=== PATIENT | male | born 1935 | race Caucasian/White ===

== ENCOUNTER 2017-02-27 14:49 | Emergency (ER) | payer OTHER, BC ==
[2017-02-27 15:14] VITALS: BP 130/83; PULSE 77; TEMP 98; BMI 28.8
--- NOTE | 2017-02-27 15:51 | PDOC ---
History of Present Illness - General Chief Complaint: Injury Stated Complaint: FALL/ PAIN Time Seen by Provider: 02/27/17 15:23 History Source: Patient Exam Limitations: No Limitations - History of Present Illness Initial Comments: 02/27/17 15:46 Rest night, when he stumbled and tripped over wheelchair landing on his right side. Denies extremity injury but complaints of chest wall pain. States hurts to take a deep breath but has no shortness of breath or cough. Denies head injury although states has a mild swelling to his right upper lip. No dental injury. 02/27/17 15:47 Occurred: reports: yesterday Severity: reports: mild, moderate Pain Location: reports: chest Method of Injury: Yes: fall Modifying Factors: improves with: cold therapy Loss of Consciousness: no loss of consciousness Associated Symptoms (Fall): denies symptoms Past History - Travel Traveled outside of the country in the last 30 days: No Close contact w/someone who was outside of country & ill: No - Past Medical History Allergies/Adverse Reactions: Allergies Allergy/AdvReac Type Severity Reaction Status Date / Time No Known Allergies Allergy Verified 02/27/17 15:09 Home Medications: Ambulatory Orders Metformin HCl 500 mg PO BID #60 tablet 12/22/13 [place]-3 Acid Ethyl Esters [Lovaza -] 4,000 mg PO DAILY 03/22/14 Tamsulosin HCl 0.4 mg PO DAILY 03/22/14 Carvedilol Phosphate [Coreg Cr -] 10 mg PO DAILY #30 capsule 03/24/14 Lisinopril [Prinivil] 10 mg PO DAILY #30 tablet 03/24/14 Aspirin [ASA -] 81 mg PO DAILY 02/27/17 Glipizide/Metformin HCl [Glipizide-Metformin 5-500 mg] 1 each PO ASDIR 02/27/17 Cardiac Disorders: Yes ([place] 1990) Diabetes: Yes HTN: Yes Hypercholesterolemia: Yes - Psycho/Social/Smoking Cessation Hx Anxiety: No Suicidal Ideation: No Smoking History: Never smoked Have you smoked in the past 12 months: No Number of Cigarettes Smoked Daily: 0 If you are a former smoker, when did you quit?: 1990 Information on smoking cessation initiated: No Hx Alcohol Use: No Drug/Substance Use Hx: No Substance Use Type: None Hx Substance Use Treatment: No Review of Systems - Review of Systems Able to Perform ROS?: Yes Is the patient limited Citizen Of [place] proficient: Yes Constitutional: Yes: See HPI. No: Symptoms Reported, Fever, Loss of Appetite, Malaise HEENTM: Yes: See HPI. No: Symptoms Reported Respiratory: Yes: Symptoms reported, See HPI, Other (pain to right anterior chest wall). No: Shortness of Breath ABD/GI: Yes: See HPI. No: Symptoms Reported, Nausea, Vomiting, Abdominal cramping Integumentary: Yes: See HPI. No: Symptoms Reported, Bruising (none noted ) *Physical Exam - Vital Signs Last Vital Signs Temp Pulse Resp BP Pulse Ox 98.0 F 77 18 130/83 100 02/27/17 15:10 02/27/17 15:10 02/27/17 15:10 02/27/17 15:10 02/27/17 15:10 - Physical Exam General Appearance: Yes: Nourished, Appropriately Dressed, Apparent Distress, Mild Distress HEENT: positive: ELIZABETH, Normal ENT Inspection, Normal Voice, TMs Normal, Pharynx Normal Neck: positive: Supple, Other (a C-spine tenderness, no crepitus or step-offs, has full range of motion to neck.). negative: Tender Respiratory/Chest: positive: Lungs Clear, Normal Breath Sounds (I'll do inspiratory pain worse in the anterior aspect on right side. Has no crepitus or step-offs along the rib borders, no bruising or swelling noted.) Cardiovascular: positive: Regular Rhythm Gastrointestinal/Abdominal: positive: Normal Bowel Sounds, Soft Extremity: positive: Normal Capillary Refill, Normal Inspection Integumentary: positive: Normal Color. negative: Swelling, Ecchymosis, Bruising Neurologic: positive: safety advisor II-XII NML intact, Fully Oriented, Alert, Normal Mood/ Affect, Normal Response, Motor Strength 5/5 ED Treatment Course - RADIOLOGY Radiology Studies Ordered: Category Date Time Status RIBS RIGHT SIDE [RAD] Stat Radiology 02/27/17 15:44 Ordered Progress Note - Progress Note Progress Note: Rib contusion, x-ray negative for fracture, we'll treat conservatively with pain resolved and follow-up with PMD as needed *DC/Admit/Observation/Transfer Diagnosis at time of Disposition: Contusion of rib on right side Qualifiers: Encounter type: initial encounter Qualified Code(s): S20.211A - Contusion of right front wall of thorax, initial encounter - Discharge Dispostion Disposition: HOME Condition at time of disposition: Stable Admit: No - Referrals Referrals: Jason Basurto MD [Primary Care Provider] - - Patient Instructions Printed Discharge Instructions: DI for Rib Contusion Additional Instructions: Rest, drink lots of fluids: Teas, water, soups, Pedialyte Ensure good big deep breaths to avoid any consolidation or fluid buildup from lack of activity Use ice packs on the area for pain relief and swelling Continue [id number] medications for symptomatic relief Tylenol or Motrin for fever and pain Followup with private physician in one to 2 days as needed Return to emergency department for worsened symptoms, fevers, dehydration
[2017-02-27] MEDS ORDERED: ACETAMINOPHEN 500 MG TABLET (FP) PO ONE (15:55)
[2017-02-27] MEDS ORDERED: ACETAMINOPHEN 325 MG TABLET (FP) ONE (15:57)
--- NOTE | 2017-03-04 13:58 | EKG ---
Test Reason : Blood Pressure : / mmHG Vent. Rate : 078 BPM Atrial Rate : 078 BPM P-R Int : 000 ms QRS Dur : 204 ms QT Int : 468 ms P-R-T Axes : -11 -70 103 degrees QTc Int : 533 ms Suspect unspecified pacemaker failure SINUS RHYTHM WITH 1ST DEGREE A-V BLOCK PACEMAKER SPIKES ARE NOTED ON THE T WAVES(SEE LEAD V1).CANNOT EXCLUDE PACEMAKER MALFUNCTION RIGHT BUNDLE BRANCH BLOCK LEFT ANTERIOR FASCICULAR BLOCK BIFASCICULAR BLOCK SEPTAL INFARCT (CITED ON OR BEFORE 21-JUN-1998) POSSIBLE LATERAL INFARCT (CITED ON OR BEFORE 21-JUN-1998) ABNORMAL ECG WHEN COMPARED WITH ECG OF 22-MAR-2014 16:15, VENT. RATE HAS INCREASED BY 33 BPM NO CLINICAL INFORMATION IS AVAILABLE, SUGGEST FOLLOW UP TRACING Confirmed by JORGE FREEMAN MD ([id number]) on 03/04/2017 1:58:22 PM Referred By: Confirmed By:JORGE FREEMAN MD
== END 2017-02-27 16:21 | disposition home or self-care (01) ==
LOC: JERFT 14:49
DX: S20.211A Contusion of right front wall of thorax, initial encounter (principal); I10 Essential (primary) hypertension; I25.2 Old myocardial infarction; E11.9 Type 2 diabetes mellitus without complications; E78.00 Pure hypercholesterolemia, unspecified; Z79.82 Long term (current) use of aspirin; Z79.84 Long term (current) use of oral hypoglycemic drugs; W01.0XXA Fall on same level from slipping, tripping and stumbling without subsequent striking against object, initial encounter; Y93.01 Activity, walking, marching and hiking; Y92.9 Unspecified place or not applicable
CPT/HCPCS: 71010-TC; 71101-TC-RT; 93005; 93010; 99281-25

== ENCOUNTER 2018-02-19 12:06 | Emergency (ER) | payer OTHER, BC ==
[2018-02-19 12:21] VITALS: BP 104/67; PULSE 72; TEMP 97.5; BMI 25.8
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
== END 2018-02-19 13:26 | disposition home or self-care (01) ==
LOC: FER 12:06
DX: M25.562 Pain in left knee (principal); I10 Essential (primary) hypertension; E78.5 Hyperlipidemia, unspecified; E11.9 Type 2 diabetes mellitus without complications; I25.10 Atherosclerotic heart disease of native coronary artery without angina pectoris; I25.2 Old myocardial infarction; Z95.810 Presence of automatic (implantable) cardiac defibrillator; Z79.82 Long term (current) use of aspirin; Z79.84 Long term (current) use of oral hypoglycemic drugs; Z87.891 Personal history of nicotine dependence
CPT/HCPCS: 73562-TC-LT-FY; 99281-25

== ENCOUNTER 2018-06-17 21:07 | Emergency (ER) | payer OTHER ==
[2018-06-17 21:22] VITALS: BP 111/78; PULSE 73; TEMP 97.5; BMI 31.9
--- NOTE | 2018-06-17 21:38 | PDOC ---
History of Present Illness - General History Source: Patient Exam Limitations: No Limitations - History of Present Illness Initial Comments: 06/17/18 21:50 The patient is a 83 year old male, with a significant past medical history of CAD (s/p defibrillator, [place] in 1990), HLD, HTN, and DM , who presents to the emergency department with, 3 days of right thumb pain and bruising. As per patient, he is unaware of any recent injury to the thumb prior to the onset of his symptoms. He endorses pain when touching the finger and mild discoloration to the finger, prompting his visit to the ER. He denies any recent fevers, chills, headache or dizziness. He denies any recent nausea, vomit, diarrhea or constipation. He denies any recent chest pain or shortness of breath. He denies any recent dysuria, frequency, urgency or hematuria. Allergies: NKDA Past surgical history: Defibrillator implantation. Social History: Former smoker. Denies EtOH use and recreational drug use. <Cherri Woodward - Last Filed: 06/17/18 21:50> <Bailee Moses - Last Filed: 06/18/18 02:25> - General Chief Complaint: Injury Stated Complaint: R 1ST DIGIT PAIN Time Seen by Provider: 06/17/18 21:09 Past History <Cherri Woodward - Last Filed: 06/17/18 21:50> - Past Medical History Cardiac Disorders: Yes ([place] 1990) COPD: No Diabetes: Yes HTN: Yes Hypercholesterolemia: Yes - Surgical History Cardiac Surgery: Yes (pacemaker/defib) - Suicide/Smoking/Psychosocial Hx Smoking History: Unknown if ever smoked Have you smoked in the past 12 months: No Number of Cigarettes Smoked Daily: 0 If you are a former smoker, when did you quit?: 1990 Information on smoking cessation initiated: No Hx Alcohol Use: No Drug/Substance Use Hx: No Substance Use Type: None Hx Substance Use Treatment: No <Bailee Moses - Last Filed: 06/18/18 02:25> - Past Medical History Allergies/Adverse Reactions: Allergies Allergy/AdvReac Type Severity Reaction Status Date / Time No Known Allergies Allergy Verified 02/19/18 12:11 Home Medications: Ambulatory Orders Metformin HCl 500 mg PO BID #60 tablet 12/22/13 [place]-3 Acid Ethyl Esters [Lovaza -] 4,000 mg PO DAILY 03/22/14 Tamsulosin HCl 0.4 mg PO DAILY 03/22/14 Carvedilol Phosphate [Coreg Cr -] 10 mg PO DAILY #30 capsule 03/24/14 Lisinopril [Prinivil] 10 mg PO DAILY #30 tablet 03/24/14 Aspirin [ASA -] 81 mg PO DAILY 02/27/17 Glipizide/Metformin HCl [Glipizide-Metformin 5-500 mg] 1 each PO ASDIR 02/27/17 Amox-Tr/K Cl [Augmentin - 875Mg Tablet] 1 tab PO BID #14 tablet 06/17/18 Review of Systems - Review of Systems Able to Perform ROS?: Yes Comments:: 06/17/18 21:50 CONSTITUTIONAL: Absent: fever, no chills, no fatigue EYES: Absent: visual changes ENT: Absent: ear pain, no sore throat CARDIOVASCULAR: Absent: chest pain, no palpitations RESPIRATORY: Absent: cough, no SOB GI: Absent: abdominal pain, no nausea, no vomiting, no constipation, no diarrhea GENITOURINARY: Absent: dysuria, no frequency, no hematuria MUSKULOSKELETAL: Absent: back pain, no arthralgia, no myalgia FINGER: Right thumb: Present: Pain and bruising. SKIN: Absent: rash NEURO: Absent: headache All Other Systems: Reviewed and Negative <Cherri Woodward - Last Filed: 06/17/18 21:50> *Physical Exam - Vital Signs Last Vital Signs Temp Pulse Resp BP Pulse Ox 97.5 F L 73 15 111/78 99 06/17/18 21:12 06/17/18 21:12 06/17/18 21:12 06/17/18 21:12 06/17/18 21:12 - Physical Exam Comments: 06/17/18 21:54 GENERAL: The patient is awake, alert, and fully oriented, in no acute distress. HEAD: Normal with no signs of trauma. EYES: Pupils equal, round and reactive to light, extraocular movements intact, sclera anicteric, conjunctiva clear with no pallor. ENT: Ears normal, nares patent, oropharynx clear without exudates. Moist mucous membranes. NECK: Normal range of motion, supple without lymphadenopathy, JVD, or masses. LUNGS: Breath sounds equal, clear to auscultation bilaterally. No wheeze/ crackles. HEART: Regular rate and rhythm, normal S1 and S2 without murmur or rub. ABDOMEN: Soft/nontender/nondistended. BS wnl. No guarding or rebound. No palpable masses. No hepatosplenomegaly. EXTREMITIES:Normal range of motion, no edema. No clubbing or cyanosis. No cords , erythema, or tenderness. RIGHT THUMB: Right thumb: Right distal phalanx of the right thumb is mild erythematous and mildly edematous with faint ecchymosis to the subungual area and periungual region. Minimally fluctuant and moderately tender. Distal phalanx is mildly warm to touch. No discharge noted. No streaking. No open wound evident. NEUROLOGICAL: Cranial nerves II through XII grossly intact. Normal speech, normal gait. PSYCH: Normal mood, normal affect. SKIN: Warm, Dry, normal turgor, no rashes or lesions noted. <Cherri Woodward - Last Filed: 06/17/18 21:50> - Vital Signs Last Vital Signs Temp Pulse Resp BP Pulse Ox 97.5 F L 73 15 111/78 99 06/17/18 21:12 06/17/18 21:12 06/17/18 21:12 06/17/18 21:12 06/17/18 21:12 <Bailee Moses - Last Filed: 06/18/18 02:25> Moderate Sedation - Procedure Monitoring Vital Signs: Procedure Monitoring Vital Signs Temperature 97.5 F L 06/17/18 21:12 Pulse Rate 73 06/17/18 21:12 Respiratory Rate 15 06/17/18 21:12 Blood Pressure 111/78 06/17/18 21:12 O2 Sat by Pulse Oximetry (%) 99 06/17/18 21:12 <Cherri Woodward - Last Filed: 06/17/18 21:50> - Procedure Monitoring Vital Signs: Procedure Monitoring Vital Signs Temperature 97.5 F L 06/17/18 21:12 Pulse Rate 73 06/17/18 21:12 Respiratory Rate 15 06/17/18 21:12 Blood Pressure 111/78 06/17/18 21:12 O2 Sat by Pulse Oximetry (%) 99 06/17/18 21:12 <Bailee Moses - Last Filed: 06/18/18 02:25> Medical Decision Making - Medical Decision Making Documentation has been prepared under my direction and personally reviewed by me in its entirety. I attest that this documented accurately reflects all work, treatment, procedures and medical decision making performed by me. As noted above, this 83-year-old man with a history of DM, presents to ER with few day history of painful, slightly swollen right thumb. Area of tenderness is distal phalanx with faint subungual ecchymosis and mild periungual edema. no drainage noted. Patient does not recall any trauma. Right thumb xray performed : preliminary interpretation- no fracture or dislocation Differential diagnosis cellulitis/early paronychia vs contusion . In light of pt 's DM, will begin empirical treatment with Augmentin 875/125 BID with first dose given here at ER. He should return to ER if symptoms worsen and followup with his PMD within 48 hrs <Bailee Moses - Last Filed: 06/18/18 02:25> *DC/Admit/Observation/Transfer - Attestations Scribe Attestion: 06/17/18 21:55 Documentation prepared by Cherri Woodward, acting as center medical specialist for Bailee Moses MD. <Cherri Woodward - Last Filed: 06/17/18 21:50> <Bailee Moses - Last Filed: 06/18/18 02:25> Diagnosis at time of Disposition: Cellulitis of thumb, right - Discharge Dispostion Disposition: HOME Condition at time of disposition: Stable - Prescriptions Prescriptions: Amox-Tr/K Cl [Augmentin - 875Mg Tablet] 1 tab PO BID #14 tablet - Patient Instructions Printed Discharge Instructions: Cellulitis Additional Instructions: Augmentin 875/125 twice a day for 1 week Elevate right thumb is much as possible over the next few days Soak right thumb in warm water 3 times a day for 15 minutes each time Return to ER immediately if you have any increase in pain/swelling of thumb or if you have pain with movement of the finger/red streaking Follow-up with your doctor within the next 48 hours
[2018-06-17] MEDS ORDERED: AMOX TR/POT CLAV 875MG/125MG TABLETS (FP) PO ONE (22:33)
[2018-06-17] MEDS ORDERED: AMOX TR/POT CLAV 875MG/125MG TABLETS (FP) ONE (22:36)
== END 2018-06-17 22:40 | disposition home or self-care (01) ==
LOC: FER 21:07
DX: L03.011 Cellulitis of right finger (principal); E11.9 Type 2 diabetes mellitus without complications
CPT/HCPCS: 73140-TC-RT-FY; 99282-25

== ENCOUNTER 2018-06-25 13:03 | Emergency (ER) | payer OTHER, BC ==
[2018-06-25 13:08] VITALS: BP 101/66; PULSE 84; TEMP 98.6; BMI 25.0
--- NOTE | 2018-06-25 13:13 | PDOC ---
History of Present Illness <Wicho Nunez S - Last Filed: 06/25/18 14:14> - General History Source: Patient - History of Present Illness Initial Comments: 83 yo M w a hx of CAD (s/p defibrillator, [place] in 1990), HLD, HTN, and DM presents to the ED from his PCP's office - Dr. Steele's office - to have a paronychia on his right thumb drained and have some of the pus cultured and tested for MRSA. Patient was recently seen here in the ED for this thumb pain and was prescribed Abx - Augmentin - which did not appear to resolve the thumb abscess. The pain has worsened and his thumb has swelled significantly. Other than his thumb he denies any other complaints. Denies any chest pain, SOB , difficulty breathing. Denies recent fevers, or chills. Denies nausea, vomiting , abdominal pain, dysuria, frequency, urgency, back pain, or leg pain. PCP: Dr. Steele Allergies: NKDA, NKA PSH: Defibrillator implantation. Social Hx: Former smoker. Denies EtOH use and recreational drug use. <Rafael Lyn - Last Filed: 06/25/18 14:45> - General Chief Complaint: Pain, Acute Stated Complaint: RIGHT THUMB PAIN Time Seen by Provider: 06/25/18 13:07 Past History <Wicho Nunez S - Last Filed: 06/25/18 14:14> - Past Medical History Cardiac Disorders: Yes ([place] 1990) COPD: No Diabetes: Yes HTN: Yes Hypercholesterolemia: Yes - Surgical History Cardiac Surgery: Yes (pacemaker/defib) - Suicide/Smoking/Psychosocial Hx Smoking History: Never smoked Have you smoked in the past 12 months: No Number of Cigarettes Smoked Daily: 0 If you are a former smoker, when did you quit?: 1990 Hx Alcohol Use: No Drug/Substance Use Hx: No Substance Use Type: None Hx Substance Use Treatment: No <Rafael Lyn - Last Filed: 06/25/18 14:45> - Past Medical History Allergies/Adverse Reactions: Allergies Allergy/AdvReac Type Severity Reaction Status Date / Time No Known Allergies Allergy Verified 06/25/18 13:04 Home Medications: Ambulatory Orders Metformin HCl 500 mg PO BID #60 tablet 12/22/13 Mcdonald-3 Acid Ethyl Esters [Lovaza -] 4,000 mg PO DAILY 03/22/14 Tamsulosin HCl 0.4 mg PO DAILY 03/22/14 Carvedilol Phosphate [Coreg Cr -] 10 mg PO DAILY #30 capsule 03/24/14 Lisinopril [Prinivil] 10 mg PO DAILY #30 tablet 03/24/14 Aspirin [ASA -] 81 mg PO DAILY 02/27/17 Glipizide/Metformin HCl [Glipizide-Metformin 5-500 mg] 1 each PO ASDIR 02/27/17 Amox-Tr/K Cl [Augmentin - 875Mg Tablet] 1 tab PO BID #14 tablet 06/17/18 Cephalexin [Keflex] 500 mg PO TID #30 capsule 06/25/18 Sulfamethoxazole/Trimethoprim [Bactrim Ds -] 1 tab PO BID #14 tablet 06/25/18 Review of Systems - Review of Systems Able to Perform ROS?: Yes Comments:: CONSTITUTIONAL: Absent: fever, no chills, no fatigue EYES: Absent: visual changes ENT: Absent: ear pain, no sore throat CARDIOVASCULAR: Absent: chest pain, no palpitations RESPIRATORY: Absent: cough, no SOB GI: Absent: abdominal pain, no nausea, no vomiting, no constipation, no diarrhea GENITOURINARY: Absent: dysuria, no frequency, no hematuria MUSKULOSKELETAL: Absent: back pain, no arthralgia, no myalgia SKIN: Present: R thumb swelling Absent: Other rash NEURO: Absent: headache <Rafael Lyn - Last Filed: 06/25/18 14:45> *Physical Exam - Vital Signs Last Vital Signs Temp Pulse Resp BP Pulse Ox 98.6 F 84 17 101/66 97 06/25/18 13:04 06/25/18 13:04 06/25/18 13:04 06/25/18 13:04 06/25/18 13:04 <Wicho Nunez - Last Filed: 06/25/18 14:14> - Vital Signs Last Vital Signs Temp Pulse Resp BP Pulse Ox 98.6 F 84 17 101/66 97 06/25/18 13:04 06/25/18 13:04 06/25/18 13:04 06/25/18 13:04 06/25/18 13:04 <Rafael Lyn - Last Filed: 06/25/18 14:45> Moderate Sedation - Procedure Monitoring Vital Signs: Procedure Monitoring Vital Signs Temperature 98.6 F 06/25/18 13:04 Pulse Rate 84 06/25/18 13:04 Respiratory Rate 17 06/25/18 13:04 Blood Pressure 101/66 06/25/18 13:04 O2 Sat by Pulse Oximetry (%) 97 06/25/18 13:04 <Wicho Nunez S - Last Filed: 06/25/18 14:14> - Procedure Monitoring Vital Signs: Procedure Monitoring Vital Signs Temperature 98.6 F 06/25/18 13:04 Pulse Rate 84 06/25/18 13:04 Respiratory Rate 17 06/25/18 13:04 Blood Pressure 101/66 06/25/18 13:04 O2 Sat by Pulse Oximetry (%) 97 06/25/18 13:04 <Rafael Lyn - Last Filed: 06/25/18 14:45> Procedures - Incision and Drainage I&D Site: Right: Paronychia Betadine cleansed: Yes Anesthesia: 1% Lidocaine Volume(ml): 15 Blade Size: 11 Attempts: 1 Plain Packing: No Complications: none Dressing: Yes <Rafael Lyn - Last Filed: 06/25/18 14:45> ED Treatment Course - Medications Given in the ED: ED Medications Discontinued Medications Generic Name Dose Route Start Last Admin Trade Name Mookieq PRN Reason Stop Dose Admin Lidocaine HCl 10 ml 06/25/18 13:28 06/25/18 13:42 Xylocaine 1% SQ 06/25/18 13:29 10 ml ONCE ONE Administration <Wicho Nunez S - Last Filed: 06/25/18 14:14> Medical Decision Making - Medical Decision Making 83 yo M w a hx of CAD (s/p defibrillator, [place] in 1990), HLD, HTN, and DM presents to the ED from his PCP's office - Dr. Steele's office - to have a paronychia on his right thumb drained and have some of the pus cultured and tested for MRSA. DDx IBNLT: Paronychia, MRSA, other abscess, osteomyelitis, Immunodeficiency Plan: Digital anesthesia block, paronychia drainage, wound culture, analgesia, re-assess. Paronychia drained. Full nail taken off bc entire nail looked infected and not viable. Patient we sent bactrim and keflex to his [facility] pharmacy. Patient advised to come back to ER or any other doc to have wound evaluated in two to three days. Motrin for pain control. Strict return precautions discussed with patient regarding pain, fever, and other side effects. <Rafael Lyn - Last Filed: 06/25/18 14:45> *DC/Admit/Observation/Transfer <Wicho Nunez - Last Filed: 06/25/18 14:14> - Discharge Dispostion Decision to Admit order: No <Rafael Lyn - Last Filed: 06/25/18 14:45> Diagnosis at time of Disposition: Paronychia - Discharge Dispostion Disposition: HOME Condition at time of disposition: Stable - Prescriptions Prescriptions: Cephalexin [Keflex] 500 mg PO TID #30 capsule Sulfamethoxazole/Trimethoprim [Bactrim Ds -] 1 tab PO BID #14 tablet - Referrals Referrals: [facility] [Provider Group] - Patient Instructions Printed Discharge Instructions: DI for Wound Infection, DI for Paronychia Additional Instructions: You were sent into the ER to have the abscess on your thumb drained. This infection is called a paronychia - Please see attached handout for further explanation and for explanation on how to care for your wound. Come back to either the emergency room or any other doctor to have your wound evaluated either tomorrow or if the pain is not too bad on Friday. We are sending antibiotics to your [facility] pharmacy - please make sure to go and pick them up. Take Keflex 500 mg 3 times a day for the next 7 days. Take Bactrim DS tablets twice a day for the next 7 days. Take motrin/ibuprofen/advil as needed for pain control. Come back to the emergency room right away if the pain worsens and becomes unbearable, if you develop a fever, start becoming nauseous or vomit, or have any other new or worsening concerns. Thank you for coming to the [facility] ER. We hope you feel better soon! Print Language: MEXICAN
[2018-06-25] MEDS ORDERED: LIDOCAINE HCL 1%, 10 MG/ML (50 mL VIAL) SQ ONE (13:28)
[2018-06-25] MEDS ORDERED: LIDOCAINE HCL 1%, 10 MG/ML (20ML VIAL) ONE (13:29)
--- NOTE | 2018-06-25 14:21 | PDOC ---
Attending Attestation - Resident Resident Name: Rafael Lyn - ED Attending Attestation I have performed the following: I have examined & evaluated the patient, The case was reviewed & discussed with the resident, I agree w/resident's findings & plan, Exceptions are as noted - HPI HPI: 83 y/o male, NIDDM, seen earlier in this ED, atbc prescribed, return for check up after a visit to his PMD. 06/25/18 14:26
[2018-06-25] MEDS ORDERED: CEPHALEXIN MONOHYDRATE 500 MG CAPSULE (UD) PO ONE (14:22)
[2018-06-25] MEDS ORDERED: SULFAMETHOXAZOLE/TRIMETHOPRIM 800MG/160MG D.S. TABLET PO ONE (14:24)
[2018-06-25] MEDS ORDERED: IBUPROFEN 600 MG TABLET (FP) PO ONE ×2 (14:25→14:37)
[2018-06-25] MEDS ORDERED: CEPHALEXIN MONOHYDRATE 500 MG CAPSULE (UD) ONE (14:37)
[2018-06-25] MEDS ORDERED: SULFAMETHOXAZOLE/TRIMETHOPRIM 800MG/160MG D.S. TABLET ONE (14:37)
== END 2018-06-25 14:52 | disposition home or self-care (01) ==
LOC: FER 13:03
PROC: 0H9QXZZ Drainage of Finger Nail, External Approach (ICD-10-PCS; principal; 2018-06-25)
DX: L03.011 Cellulitis of right finger (principal); I25.10 Atherosclerotic heart disease of native coronary artery without angina pectoris; E78.5 Hyperlipidemia, unspecified; I10 Essential (primary) hypertension; E11.9 Type 2 diabetes mellitus without complications; Z95.810 Presence of automatic (implantable) cardiac defibrillator; Z87.891 Personal history of nicotine dependence
CPT/HCPCS: 87070; 87186; 87205; 99282-25

== ENCOUNTER 2018-06-27 11:24 | Emergency (ER) | payer OTHER, BC ==
--- NOTE | 2018-06-27 11:39 | PDOC ---
Attending Attestation - Resident Resident Name: ShantelJazmynshaneluz - ED Attending Attestation I have performed the following: I have examined & evaluated the patient, The case was reviewed & discussed with the resident, I agree w/resident's findings & plan, Exceptions are as noted - HPI HPI: 06/27/18 11:38 Wound check right thumb. Paronychia treated with antibiotics June 17. Return June 25, fingernail was removed, antibiotics were continued and finger was bandaged. Complains of persistent pain but no drainage. No fever or other constitutional symptoms. No numbness or tingling. 06/27/18 11:39 - Physicial Exam PE: 06/27/18 11:40 The wound was inspected. The nail bed is clean and dry. There is no purulence or drainage. There is no erythema, warmth, or swelling of the surrounding tissue. There is still mild tenderness of the distal pulp. - Medical Decision Making 06/27/18 11:41 Assessment: Nailbed is intact, nonpurulent, healing well. No sign of surrounding cellulitis or other infection Plan: Redressed with nonstick dressing and continue antibiotics. Follow-up in 3 days for wound check and dressing change. Fully ambulatory and in no pain or other distress upon discharge with family to follow-up as directed
[2018-06-27 11:44] VITALS: BP 99/63; PULSE 89; TEMP 97.8; BMI 25.0
--- NOTE | 2018-06-27 11:54 | PDOC ---
History of Present Illness - General Chief Complaint: Revisit,Wound Recheck Stated Complaint: WOUND CHECK RIGHT THUMB Time Seen by Provider: 06/27/18 11:27 - History of Present Illness Initial Comments: 83 yo male w a hx of CAD (s/p defibrillator, [place] in 1990), HLD, HTN, and DM presents to the ED from home for a right thumb wound check after having his fingernail removed for a paronychia at our facility two days prior. He does admit to pain at the thumb but less swelling and denies any drainage from the wound. Although, he has not changed the bandage as he was instructed not to do so. Patient denies fevers, chills, nausea, vomiting, diarrhea, or other symptoms.He is still taking his Cephalaxin and trimethorpim/ sulfamethoxasole. 06/27/18 12:08 Past History - Past Medical History Allergies/Adverse Reactions: Allergies Allergy/AdvReac Type Severity Reaction Status Date / Time No Known Allergies Allergy Verified 06/25/18 13:04 Home Medications: Ambulatory Orders Metformin HCl 500 mg PO BID #60 tablet 12/22/13 [place]-3 Acid Ethyl Esters [Lovaza -] 4,000 mg PO DAILY 03/22/14 Tamsulosin HCl 0.4 mg PO DAILY 03/22/14 Carvedilol Phosphate [Coreg Cr -] 10 mg PO DAILY #30 capsule 03/24/14 Lisinopril [Prinivil] 10 mg PO DAILY #30 tablet 03/24/14 Aspirin [ASA -] 81 mg PO DAILY 02/27/17 Glipizide/Metformin HCl [Glipizide-Metformin 5-500 mg] 1 each PO ASDIR 02/27/17 Cephalexin [Keflex] 500 mg PO TID #30 capsule 06/25/18 Sulfamethoxazole/Trimethoprim [Bactrim Ds -] 1 tab PO BID #14 tablet 06/25/18 Cardiac Disorders: Yes ([place] 1990) COPD: No Diabetes: Yes HTN: Yes Hypercholesterolemia: Yes - Surgical History Cardiac Surgery: Yes (pacemaker/defib) - Suicide/Smoking/Psychosocial Hx Smoking History: Never smoked Have you smoked in the past 12 months: No Number of Cigarettes Smoked Daily: 0 If you are a former smoker, when did you quit?: 1990 Hx Alcohol Use: No Drug/Substance Use Hx: No Substance Use Type: None Hx Substance Use Treatment: No Review of Systems - Review of Systems Constitutional: No: Chills, Diaphoresis, Fever HEENTM: No: Eye Pain, Blurred Vision Respiratory: No: Cough, Orthopnea, Shortness of Breath Cardiac (ROS): No: Edema, Irregular Heart Rate, Chest Tightness ABD/GI: No: Constipated, Diarrhea, Nausea, Poor Appetite : No: Burning, Dysuria, Discharge Musculoskeletal: No: Back Pain, Joint Pain, Muscle Weakness Integumentary: Yes: Lesions. No: Bruising, Dryness, Erythema, Flushing, Lumps Neurological: No: Headache, Numbness Psychiatric: No: Anxiety, Depression Endocrine: No: Flushing Hematologic/Lymphatic: No: Anemia, Blood Clots, Easy Bleeding, Lymph Node Abnormalities *Physical Exam - Vital Signs Last Vital Signs Temp Pulse Resp BP Pulse Ox 97.8 F 89 16 99/63 98 06/27/18 11:25 06/27/18 11:25 06/27/18 11:25 06/27/18 11:25 06/27/18 11:25 - Physical Exam General Appearance: Yes: Nourished, Appropriately Dressed. No: Apparent Distress HEENT: positive: EOMI, ELIZABETH, Normal ENT Inspection, Normal Voice Neck: positive: Trachea midline, Normal Thyroid, Supple. negative: Tender, Rigid Respiratory/Chest: positive: Lungs Clear, Normal Breath Sounds. negative: Chest Tender, Respiratory Distress Cardiovascular: positive: Regular Rhythm, Regular Rate Gastrointestinal/Abdominal: positive: Normal Bowel Sounds, Flat, Soft. negative : Tender Lymphatic: negative: Adenopathy, Tenderness Musculoskeletal: negative: Normal Inspection (right thumb slightly swollen but not draining any fluid from the nail bed. Appears to be healing well. No sign of overt abscess or cellulitis.), Decreased Range of Motion Extremity: positive: Normal Capillary Refill, Normal Range of Motion, Tender. negative: Normal Inspection Integumentary: positive: Normal Color, Dry, Warm Neurologic: positive: Fully Oriented, Alert, Normal Mood/Affect, Normal Response , Motor Strength 5/5 Moderate Sedation - Procedure Monitoring Vital Signs: Procedure Monitoring Vital Signs Temperature 97.8 F 06/27/18 11:25 Pulse Rate 89 06/27/18 11:25 Respiratory Rate 16 06/27/18 11:25 Blood Pressure 99/63 06/27/18 11:25 O2 Sat by Pulse Oximetry (%) 98 06/27/18 11:25 Medical Decision Making - Medical Decision Making 83 year old male where for a wound check 2 days s/p right thumb fingernail removal for paronychia. Patient's wound appears to be healing well and no longer draining any sort of fluid. VSS and afebrile so patient will go home with fresh non-stick dressing and wound check in 3 days along with continued abx course. 06/27/18 12:24 *DC/Admit/Observation/Transfer Diagnosis at time of Disposition: Visit for wound check - Discharge Dispostion Disposition: HOME Condition at time of disposition: Improved Decision to Admit order: No - Referrals Referrals: Janeth Smiley [Primary Care Provider] - - Patient Instructions Printed Discharge Instructions: DI for Wound Infection Additional Instructions: Please do not change your bandage until you return on Friday, Please use Tylenol for your pain. please return to the ED if you have new or worsening symptoms. - Post Discharge Activity
== END 2018-06-27 12:00 | disposition home or self-care (01) ==
LOC: FER 11:24
DX: Z48.01 Encounter for change or removal of surgical wound dressing (principal)
CPT/HCPCS: 99281-25

== ENCOUNTER 2018-06-30 11:38 | Emergency (ER) | payer OTHER, BC ==
[2018-06-30 11:43] VITALS: BP 108/63; PULSE 88; TEMP 97.8; BMI 25.0
--- NOTE | 2018-06-30 11:47 | PDOC ---
History of Present Illness - General Chief Complaint: Revisit,Wound Recheck Stated Complaint: wound check Time Seen by Provider: 06/30/18 11:42 - History of Present Illness Initial Comments: 06/30/18 12:37 83 year old male with a PMH of CAD (s/p [place] (1990) w/defibrillator implantation) , HLD, HTN and NIDDM presents to our ED for a wound check. Patient states he was evaluated in our ED last week and his nail was removed. Patient was started on antibiotics and instructed to return to ED in 5 days for a wound check. States he has been compliant with his antibiotic regimen and denies any fevers/chills, erythema, tenderness. ROS is positive for 1 day of watery stools. Patient further denies chest pain, shortness of breath, abdominal pain, dysuria/ hematuria, numbness/tingling, cough, sore throat. As per EMR, patient evaluated in our ED 06/25 at which time paronchyia was drained and nail removed. Patient prescribed a 7 day course of Keflex and Bactrim. Wound check on 06/27 showed improved erythema, VS stable. Past History - Past Medical History Allergies/Adverse Reactions: Allergies Allergy/AdvReac Type Severity Reaction Status Date / Time No Known Allergies Allergy Verified 06/30/18 11:39 Home Medications: Ambulatory Orders Metformin HCl 500 mg PO BID #60 tablet 12/22/13 Rumsey-3 Acid Ethyl Esters [Lovaza -] 4,000 mg PO DAILY 03/22/14 Tamsulosin HCl 0.4 mg PO DAILY 03/22/14 Carvedilol Phosphate [Coreg Cr -] 10 mg PO DAILY #30 capsule 03/24/14 Lisinopril [Prinivil] 10 mg PO DAILY #30 tablet 03/24/14 Aspirin [ASA -] 81 mg PO DAILY 02/27/17 Glipizide/Metformin HCl [Glipizide-Metformin 5-500 mg] 1 each PO ASDIR 02/27/17 Cephalexin [Keflex] 500 mg PO TID #30 capsule 06/25/18 Sulfamethoxazole/Trimethoprim [Bactrim Ds -] 1 tab PO BID #14 tablet 06/25/18 Cardiac Disorders: Yes ([place] 1990) COPD: No Diabetes: Yes HTN: Yes Hypercholesterolemia: Yes - Surgical History Cardiac Surgery: Yes (pacemaker/defib) - Suicide/Smoking/Psychosocial Hx Smoking History: Never smoked Have you smoked in the past 12 months: No Number of Cigarettes Smoked Daily: 0 If you are a former smoker, when did you quit?: 1990 Hx Alcohol Use: No Drug/Substance Use Hx: No Substance Use Type: None Hx Substance Use Treatment: No Review of Systems - Review of Systems Constitutional: No: Chills, Fever HEENTM: No: Blurred Vision, Double Vision, Hearing Loss, Throat Pain, Other Respiratory: No: Cough, Stridor, Wheezing, Hemoptysis Cardiac (ROS): No: Chest Pain, Edema, Lightheadedness, Palpitations, Syncope ABD/GI: No: Constipated, Diarrhea, Nausea, Vomiting, Abdominal cramping Integumentary: Yes: Other (R 1st digit, open nail bed) *Physical Exam - Vital Signs Last Vital Signs Temp Pulse Resp BP Pulse Ox 97.8 F 88 17 108/63 100 06/30/18 11:39 06/30/18 11:39 06/30/18 11:39 06/30/18 11:39 06/30/18 11:39 - Physical Exam General Appearance: Yes: Nourished, Appropriately Dressed HEENT: positive: Normal Voice, Hearing Grossly Normal Neck: positive: Trachea midline, Supple Respiratory/Chest: positive: Lungs Clear, Normal Breath Sounds. negative: Crackles, Rales, Stridor, Wheezing Cardiovascular: positive: Regular Rhythm, Regular Rate, S1, S2. negative: Edema , JVD Gastrointestinal/Abdominal: positive: Normal Bowel Sounds, Soft. negative: Distended, Guarding, Rebound, Tenderness Musculoskeletal: negative: CVA Tenderness (R), CVA Tenderness (L) Extremity: positive: Normal Capillary Refill, Other (R first digit, removed nail bed, granulation tissue, no erythema, no TTP, 2+ radial pulse, full ROM) Integumentary: positive: Normal Color, Dry, Warm Neurologic: positive: Fully Oriented, Alert Moderate Sedation - Procedure Monitoring Vital Signs: Procedure Monitoring Vital Signs Temperature 97.8 F 06/30/18 11:39 Pulse Rate 88 06/30/18 11:39 Respiratory Rate 17 06/30/18 11:39 Blood Pressure 108/63 06/30/18 11:39 O2 Sat by Pulse Oximetry (%) 100 06/30/18 11:39 Medical Decision Making - Medical Decision Making 06/30/18 12:00 83 year old male, presents wound check s/p paronychia draining and nail removal. VS unremarkable. No erythema, good granulation tissue, NVI on PE. Will clean wound, give patient strict return precautions. Patient counseled to increase yogurt/probiotic intake for possible brewing C Diff infection. I discussed the physical exam findings, ancillary test results and final diagnoses with the patient. I answered all of the patient's questions. The patient was satisfied with the care received and felt comfortable with the discharge plan and treatment plan. The patient will return to the Emergency Department with any new, persistent or worsening symptoms. *DC/Admit/Observation/Transfer Diagnosis at time of Disposition: Visit for wound check - Discharge Dispostion Disposition: HOME Condition at time of disposition: Good Decision to Admit order: No - Referrals - Patient Instructions Printed Discharge Instructions: DI for Antibiotic -- associated Colitis -- C difficile Additional Instructions: Please check your wound daily. Apply bacitracin twice daily. Eat yogurt to help with your diarrhea and drink plenty of fluid. Follow up with your primary care doctor in the next 3 days. Return to the Emergency Department for any new/worsening/concerning symptoms including redness, severe pain, fevers as well as increased diarrhea. - Post Discharge Activity
--- NOTE | 2018-06-30 12:02 | PDOC ---
Attending Attestation - Resident Resident Name: Ana - ED Attending Attestation I have performed the following: I have examined & evaluated the patient, The case was reviewed & discussed with the resident, I agree w/resident's findings & plan, Exceptions are as noted - HPI HPI: 06/30/18 15:56 Reviewed Residents HPI - Physicial Exam PE: 06/30/18 15:56 Reviewed Residents PE - Medical Decision Making 06/30/18 17:41 Clumps of maculopapular rashes with excoriations some linear in nature extending from the patient's right guillory to above his knee. They appear in groups of 3-10 bumps they're mildly pruritic there are no other rashes involving his wrists elbows perineum or back At this time history examination most consistent with bedbugs less likely a contact dermatitis less likely scabies given distribution Bedbug removal precautions discussed with patient He will follow up with his primary care provider next week. Findings, the need for follow-up and strict return instructions discussed with patient.
[2018-06-30] MEDS ORDERED: SODIUM CHLORIDE 0.9% 1000 ML INFUS.BAG IV ONE (12:04)
== END 2018-06-30 12:19 | disposition home or self-care (01) ==
LOC: FER 11:38
DX: Z48.01 Encounter for change or removal of surgical wound dressing (principal)
CPT/HCPCS: 99281-25